=== PATIENT | female | born 1995 | race Caucasian/White ===

== ENCOUNTER 2016-11-01 21:08 | Emergency (ER) | payer OTHER ==
[2016-11-01 22:17] LABS: SPECIFIC GRAVITY 1.025 (1.001-1.030); URINE BILIRUBIN NEGATIVE (NEGATIVE); URINE BLOOD NEGATIVE (NEGATIVE); URINE GLUCOSE (UA) NEGATIVE (NEGATIVE); URINE LEUKOCYTE ESTERASE TRACE (NEGATIVE); URINE NITRITE NEGATIVE (NEGATIVE); URINE PROTEIN TRACE (NEGATIVE); URINE UROBILINOGEN NORMAL (0-1 mg/dl)
[2016-11-01 22:29] LABS: URINE APPEARANCE SL CLOUDY; URINE COLOR YELLOW
[2016-11-01 22:38] LABS: URINE BACTERIA RARE; URINE CRYSTALS 1+ CALCIUM OXILATE /hpf; URINE RBC 0 /hpf; URINE WBC 0-2 /hpf
[2016-11-01] MEDS ORDERED: PHENAZOPYRIDINE HCL 200 MG TABLET ONE (23:42)
== END 2016-11-01 23:52 | disposition home or self-care (01) ==
LOC: ED 21:08
DX: O26.891 Other specified pregnancy related conditions, first trimester (principal); R30.0 Dysuria; Z3A.08 8 weeks gestation of pregnancy
CPT/HCPCS: 81001; 99283 ×2; A9270